=== PATIENT | female | born 1990 | race Caucasian/White ===

== ENCOUNTER 2019-06-09 14:19 | Emergency (ER) | payer OTHER ==
[~2019-06-09] VITALS: Ht 160 cm; Wt 74.8 kg
--- OUTSIDE RECORDS SUMMARY | 2019-06-09 14:21 | XMS REPORT | Clinical Summary ---
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 08/19/2018 ibuprofen (ADVIL,MOTRIN) Take 1 tablet 60 tablet 3 600 MG tablet (600 mg 8 total) by mouth every 6 (six) hours as needed (Cramping, Laceration or Incision Pain) for up to 30 days. 08/19/2018 FSD89-vvfx,carb,glu-FA-ds Take 1 tablet 30 each 13 s-dha 27 mg iron-1 mg -50 by mouth 8 mg-250 mg combo pack daily for 30 days. Active Problems Problem Noted Date 07/18/2018 Encounters Care Team Description Date Type Specialty Yari Cleary MD 07/18/2018 Anesthesia Obstetrics and Gynecology Event Kim Mascorro MD 39 weeks gestation of (Primary Dx) 07/18/2018 Hospital Obstetrics and Gynecology - Encounter 07/20/2018 Kim Mascorro MD DELIVERY, 07/18/2018 Surgery Obstetrics and Gynecology Kim Mascorro MD REPEAT + BILATERAL TUBAL LIGATION 07/16/2018 Surgery Obstetrics and Gynecology Kim Mascorro MD 07/16/2018 Hospital Obstetrics and Gynecology Encounter after 06/08/2018 Immunizations Name Dates Previously Given Next Due FLUCELVAX QUAD PF (0.5mL 07/19/2018 syringe) Tdap 07/19/2018 Family History Medical History Relation Name Comments Cancer Paternal Grandmother Relation Name Status Comments Paternal Grandmother Social History Date Tobacco Use Types Packs/Day Years Used Never Smoker Smokeless Tobacco: Never Used Alcohol Use Drinks/Week oz/Week Comments No Sex Assigned at Date Recorded Not on file Industry Job Start Date Occupation Not on file Not on file Not on file Travel End Travel History Travel Start No recent travel history available. Last Filed Vital Signs Time Taken Vital Sign Reading 07/20/2018 8:22 AM CDT Blood Pressure 112/62 07/20/2018 8:22 AM CDT Pulse 77 07/20/2018 8:22 AM CDT Temperature 36.7 C (98.1 F) 07/20/2018 8:22 AM CDT Respiratory Rate 18 07/18/2018 4:00 PM CDT Oxygen Saturation 98% - Inhaled Oxygen - Concentration 07/18/2018 6:41 AM CDT Weight 74.4 kg (164 lb) 07/18/2018 6:41 AM CDT Height 160 cm (5' 3") 07/18/2018 6:41 AM CDT Body Mass Index 29.05 Plan of Treatment Not on file Procedures Comments Procedure Name Priority Date/Time Associated Diagnosis HC COMPLETE BLD COUNT Routine 07/19/2018 W/AUTO DIFF 4:08 AM CDT SURGICAL PATHOLOGY Routine 07/18/2018 REQUEST 9:16 AM CDT CORD BLOOD GAS, VENOUS Routine 07/18/2018 9:00 AM CDT CORD BLOOD GAS, ARTERIAL Routine 07/18/2018 9:00 AM CDT ANESTHESIA SPINAL BLOCK Routine 07/18/2018 8:42 AM CDT Procedure Note - Yari Cleary MD - 07/18/2018 8:42 AM CDT Spinal Block Performed by: YARI CLEARY Authorized by: YARI CLEARY Patient Location: OB Start Time: 07/18/2018 8:35 AM End Time: 07/18/2018 8:42 AM Reason for Block: primary anesthetic Staff: Anesthesio logist: YARI CLEARY Performed by: Anesthesio logist patient identified , IV checked, site and side verified, risks and benefits discussed, procedure verified, surgical consent complete, patient position confirmed, monitors and equipment checked and pre-op evaluation complete TIme Out Performed: 07/18/2018 8:31 AM Spinal Block: Patient Position: Sitting Prep: Betadine Monitoring : Blood pressure monitoring , continuous pulse oximetry and heart rate Approach: Midline Interspace : L4-5 Injection Technique: Single injection Notes: Bupivacain e 14mg with Morphine 0.2mg in CSF. Lot [id number] 07/19 [id number] 04/15/2020 . HIV 1, 2 ANTIBODY Routine 07/18/2018 6:44 AM CDT TYPE AND SCREEN, Routine 07/18/2018 OBSTETRICAL PATIENT 6:44 AM CDT SYPHILIS TREPONEMAL IGG Routine 07/18/2018 6:44 AM CDT HEPATITIS B SURFACE Routine 07/18/2018 ANTIGEN 6:44 AM CDT HC COMPLETE BLD COUNT Routine 07/18/2018 W/AUTO DIFF 6:44 AM CDT URINE DRUGS OF ABUSE STAT 07/18/2018 SCREEN 6:30 AM CDT URINALYSIS SCREEN AND STAT 07/18/2018 MICROSCOPY, WITH REFLEX 6:30 AM CDT TO CULTURE GRAM STAIN STAT 07/18/2018 6:30 AM CDT URINE CULTURE STAT 07/18/2018 6:30 AM CDT DELIVERY, 07/18/2018 Prior Case Notes Scheduled + BILATERAL 07/16/2018 Onset (spontaneous) of TUBAL LIGATION 7:30 AM CDT labor after 37 completed weeks of gestation but before 39 completed weeks gestation, with delivery by (planned) section Encounter for initial prescription of contraceptives, unspecified contraceptive Special Needs [facility] 07-23-1830/2 WKS HIV 1, 2 ANTIBODY Routine 07/16/2018 6:57 AM CDT TYPE AND SCREEN, Routine 07/16/2018 OBSTETRICAL PATIENT 6:57 AM CDT SYPHILIS TREPONEMAL IGG Routine 07/16/2018 6:57 AM CDT HEPATITIS B SURFACE Routine 07/16/2018 ANTIGEN 6:57 AM CDT HC COMPLETE BLD COUNT Routine 07/16/2018 W/AUTO DIFF 6:57 AM CDT URINE DRUGS OF ABUSE STAT 07/16/2018 SCREEN 6:15 AM CDT URINALYSIS SCREEN AND STAT 07/16/2018 MICROSCOPY, WITH REFLEX 6:15 AM CDT TO CULTURE GRAM STAIN STAT 07/16/2018 6:15 AM CDT URINE CULTURE STAT 07/16/2018 6:15 AM CDT BETA STREP SCREEN CULTURE Routine 06/20/2018 WITH OLIVA BROTH after 06/08/2018 Results * CBC with platelet and differential (07/19/2018 4:08 AM CDT) Only the most recent of 3 results within the time period is included. WBC 7.9 4.2 - 11.0 k/uL [facility] DEPARTMENT OF PATHOLOGY AND GENOMIC MEDICINE RBC 2.82 (L) 4.04 - 5.86 m/uL [facility] DEPARTMENT OF PATHOLOGY AND GENOMIC MEDICINE HGB 8.5 (L) 11.5 - 15.3 g/dL [facility] DEPARTMENT OF PATHOLOGY AND GENOMIC MEDICINE HCT 25.7 (L) 34.0 - 45.0 % [facility] DEPARTMENT OF PATHOLOGY AND GENOMIC MEDICINE MCV 91.1 80.0 - 98.0 fL [facility] DEPARTMENT OF PATHOLOGY AND GENOMIC MEDICINE MCH 30.1 27.0 - 34.0 pg [facility] DEPARTMENT OF PATHOLOGY AND GENOMIC MEDICINE MCHC 33.1 31.5 - 36.5 g/dL [facility] DEPARTMENT OF PATHOLOGY AND GENOMIC MEDICINE RDW - SD 43.4 37.0 - 51.0 fL [facility] DEPARTMENT OF PATHOLOGY AND GENOMIC MEDICINE MPV 11.6 (H) 7.4 - 10.4 fL [facility] DEPARTMENT OF PATHOLOGY AND GENOMIC MEDICINE Platelet count 157 150 - 400 k/uL [facility] DEPARTMENT OF PATHOLOGY AND GENOMIC MEDICINE Nucleated RBC 0.00 /100 WBC [facility] DEPARTMENT OF PATHOLOGY AND GENOMIC MEDICINE Neutrophils 73.4 (H) 36.0 - 66.0 % [facility] DEPARTMENT OF PATHOLOGY AND GENOMIC MEDICINE Lymphocytes 18.3 (L) 24.0 - 44.0 % [facility] DEPARTMENT OF PATHOLOGY AND GENOMIC MEDICINE Monocytes 6.8 (H) 0.0 - 6.0 % [facility] DEPARTMENT OF PATHOLOGY AND GENOMIC MEDICINE Eosinophils 0.8 0.0 - 6.0 % [facility] DEPARTMENT OF PATHOLOGY AND GENOMIC MEDICINE Basophils 0.3 0.0 - 1.2 % [facility] DEPARTMENT OF PATHOLOGY AND GENOMIC MEDICINE Immature 0.4 0.0 - 1.0 % [facility] granulocytes OF PATHOLOGY AND GENOMIC MEDICINE Specimen Blood Performing Organization Address City/State/Zipcode Phone Number [address] [address] PATHOLOGY AND GENOMIC MEDICINE * Surgical pathology request (07/18/2018 9:16 AM CDT) [facility] DEPARTMENT OF PATHOLOGY AND GENOMIC MEDICINE Surgical See link below for PDF Lab [facility] pathology Report OF PATHOLOGY report AND GENOMIC MEDICINE Result status This is Final Report for [facility] [id number] OF PATHOLOGY AND GENOMIC MEDICINE Specimen Performing Organization Address City/[facility] Phone Number [address] [address] PATHOLOGY AND GENOMIC MEDICINE * Cord blood gas, arterial (07/18/2018 9:00 AM CDT) Nurse Practitioner Physicians Assistant WALTER [facility] DEPARTMENT OF PATHOLOGY AND GENOMIC MEDICINE Collection site CORD BLOOD [facility] DEPARTMENT OF PATHOLOGY AND GENOMIC MEDICINE pH, cord 7.32 7.13 - 7.43 [facility] DE[facility] arterial Comment: OF PATHOLOGY CORD BLOOD GAS SPECIMEN AND GENOMIC Unique reference ranges apply MEDICINE to pH, PO2, PCO2 and Base deficit. pCO2, cord 48 30 - 60 mmHg [facility] DE[facility] arterial OF PATHOLOGY AND GENOMIC MEDICINE pO2, cord 20 mmHg [facility] DE[facility] arterial OF PATHOLOGY AND GENOMIC MEDICINE O2 saturation, 39 (LL)Comment: CORD BLOOD % [facility] DEPARTMENT cord arterial OF PATHOLOGY AND GENOMIC MEDICINE Base excess, -1 mEq/L [facility] DEPART[facility] arterial, cord OF PATHOLOGY AND GENOMIC MEDICINE Bicarbonate, 24.9 21.0 - 28.0 mmol/L [facility] arterial, cord OF PATHOLOGY AND GENOMIC MEDICINE O2 content 8.1 VOL% [facility] DE[facility]MENT OF PATHOLOGY AND GENOMIC MEDICINE Carboxyhemoglob 1.9 (H) 0.0 - 1.4 % [facility] DEPART[facility] in Comment: OF PATHOLOGY Reference Ranges: AND [facility] Carboxyhemoglobin MEDICINE Non smoker: 0.0 - 2.0% Smoker: 2.1 - 5.0% Heavy smoker: 5.1 - 9% Methemoglobin 1.2 (H) 0.0 - 1.0 % [facility] DEPARTMENT OF PATHOLOGY AND GENOMIC MEDICINE Hemoglobin, 15.1 12.0 - 16.0 g/dL [facility] DE[facility] blood gas OF PATHOLOGY AND GENOMIC MEDICINE pO2, A-a 75.1 mmHg [facility] DE[facility]MENT OF PATHOLOGY AND GENOMIC MEDICINE Specimen Blood Performing Organization Address City/State/[facility] Phone Number [facility] [address] [place] [address] PATHOLOGY AND GENOMIC MEDICINE * Cord blood gas, venous (07/18/2018 9:00 AM CDT) Pathologist [facility] pH, cord venous 7.36 7.19 - 7.49 mL [facility] DE[facility] OF PATHOLOGY AND GENOMIC MEDICINE pCO2, cord 43 27 - 43 mmHg [facility] venous OF PATHOLOGY AND GENOMIC MEDICINE pO2, cord 23 15 - 45 mmHg [facility] venous OF PATHOLOGY AND GENOMIC MEDICINE O2 saturation, 50 % [facility] cord venous OF PATHOLOGY AND GENOMIC MEDICINE Base excess, -1 (L) 1 - 9 mEq/L [facility] venous, cord OF PATHOLOGY AND GENOMIC MEDICINE Bicarbonate, 24.3 21.0 - 28.0 mmol/L [facility] venous, cord OF PATHOLOGY AND GENOMIC MEDICINE Specimen Performing Organization Address City/[facility] Phone Number [facility] [address] [place] [address] PATHOLOGY AND GENOMIC MEDICINE * Syphilis treponemal IgG (07/18/2018 6:44 AM CDT) Only the most recent of 2 results within the time period is included. Pathologist [facility] Syphilis Non-reactiveComment: Non-reactive [facility] DEPARTMENT treponemal IgG Non-reactive: No serological OF PATHOLOGY evidence of Syphilis infection AND GENOMIC MEDICINE Specimen Serum Performing Organization Address City/State/Zipcode Phone Number [facility] [address] [place] [address] PATHOLOGY AND GENOMIC MEDICINE * Type and screen, obstetrical patient (07/18/2018 6:44 AM CDT) Only the most recent of 2 results within the time period is included. Pathologist [facility] ABO grouping O [facility] DE[facility]MENT OF PATHOLOGY AND GENOMIC MEDICINE Rh type POS [facility] OF PATHOLOGY AND GENOMIC MEDICINE Antibody screen NEG [facility] DE[facility] (gel) OF PATHOLOGY AND GENOMIC MEDICINE Specimen Blood Performing Organization Address City/[facility]/Zipcode Phone Number [facility] [address]ichardo[facility] [facility]. [place] [phone] PATHOLOGY AND GENOMIC MEDICINE * HIV 1, 2 antibody (07/18/2018 6:44 AM CDT) Only the most recent of 2 results within the time period is included. [facility] HIV 1, 2 Non-Reactive Non-reactive [facility] DE[facility] antibody Comment: OF PATHOLOGY Starting from February 11 2016, AND GENOMIC 4th generation HIV screening MEDICINE and confirmation assays are in use at [facility], consistent with the CDC-recommended algorithm. The screening test detects antibodies to HIV-1, HIV-2 and the p24 antigen. Positive screening results will be automatically reflexed to a HIV-1/HIV-2 differentiation assay. Indeterminant HIV-1 results will be further automatically reflexed to a nucleic acid test for detection of acute infection. Western blot will no longer be performed as a confirmation test. For a quick reference guide on the testing algorithm, please refer to: http://stacks.cdc.gov/view/cdc /11820. Specimen Blood Performing Organization Address City/[facility]/Zipcode Phone Number [place] [phone] [place] [address] PATHOLOGY AND [facility] * Hepatitis B surface antigen (07/18/2018 6:44 AM CDT) Only the most recent of 2 results within the time period is included. [facility] Hepatitis B Non-reactive Non-reactive [facility] surface Ag OF PATHOLOGY AND GENOMIC [facility] Specimen Blood Performing Organization Address City/[facility]/Zipcode Phone Number [place] [address] [facility]. [place] [phone] PATHOLOGY AND GENOMIC MEDICINE * Urinalysis screen and microscopy, with reflex to culture (07/18/2018 6:30 AM CDT) Only the most recent of 2 results within the time period is included. [facility] Specimen site Clean catch [facility] DE[facility] OF PATHOLOGY AND GENOMIC MEDICINE Color, UA Yellow [facility] DE[facility] OF PATHOLOGY AND GENOMIC MEDICINE Appearance, UA Slightly-Cloudy [facility] OF PATHOLOGY AND GENOMIC MEDICINE Specific 1.011 1.001 - 1.035 [facility] gravity, UA OF PATHOLOGY AND GENOMIC MEDICINE pH, UA 6.0 5.0 - 8.5 [facility] OF PATHOLOGY AND GENOMIC MEDICINE Protein, UA Negative Negative [facility] OF PATHOLOGY AND GENOMIC MEDICINE Glucose, UA Negative Negative [facility] OF PATHOLOGY AND GENOMIC MEDICINE Ketones, UA Negative Negative [facility] OF PATHOLOGY AND GENOMIC MEDICINE Bilirubin, UA Negative Negative [facility] OF PATHOLOGY AND GENOMIC MEDICINE Blood, UA Negative Negative [facility] OF PATHOLOGY AND GENOMIC MEDICINE Nitrite, UA Negative Negative [facility] OF PATHOLOGY AND GENOMIC MEDICINE Urobilinogen, Negative <2.0 [facility] UA OF PATHOLOGY AND GENOMIC MEDICINE Leukocyte Moderate (A) Negative [facility] esterase, UA OF PATHOLOGY AND GENOMIC MEDICINE Epithelial Many /HPF [facility] cells, UA OF PATHOLOGY AND GENOMIC MEDICINE WBC, UA 19 (H) 0 - 5 /HPF [facility] OF PATHOLOGY AND GENOMIC MEDICINE RBC, UA 6 (H) 0 - 5 /HPF [facility] OF PATHOLOGY AND GENOMIC MEDICINE Bacteria, UA Trace None seen [facility] OF PATHOLOGY AND GENOMIC MEDICINE WBC clumps, UA Few (A) [facility] OF PATHOLOGY AND GENOMIC MEDICINE Yeast, UA None seen [facility] OF PATHOLOGY AND GENOMIC MEDICINE Yeast with None seen [facility] DE[facility] pseudohyphae, OF PATHOLOGY UA AND GENOMIC MEDICINE Specimen Urine Performing Organization Address City/State/Zipcode Phone Number [facility] [address] [place] [address] PATHOLOGY AND [facility] MEDICINE * Urine drugs of abuse screen (07/18/2018 6:30 AM CDT) Only the most recent of 2 results within the time period is included. Amphetamine Negative [facility] screen, urine OF PATHOLOGY AND GENOMIC MEDICINE Barbiturate Negative [facility] screen, urine OF PATHOLOGY AND GENOMIC MEDICINE Benzodiazepine Negative [facility] screen, urine OF PATHOLOGY AND GENOMIC MEDICINE Cocaine screen, Negative [facility] urine OF PATHOLOGY AND GENOMIC MEDICINE Methadone Negative [facility] screen, urine OF PATHOLOGY AND GENOMIC MEDICINE Opiates screen, Negative [facility] urine OF PATHOLOGY AND GENOMIC MEDICINE Phencyclidine Negative [facility] screen, urine OF PATHOLOGY AND GENOMIC MEDICINE Cannabinoid Negative [facility] screen, urine Comment: OF PATHOLOGY Drug screen minimum AND GENOMIC concentration of detectability MEDICINE Amphetamines 1000 ng/mL Methamphetamines 1000 ng/mL Barbiturates 300 ng/mL Benzodiazepines 300 ng/mL Cocaine 300 ng/mL Methadone 300 ng/mL Opiates 300 ng/mL Phencyclidine 25 ng/mL Cannabinoids 50 ng/mL Tricyclics 1000 ng/mL Negative test results indicates presumptive evidence of lack of clinically significant drug concentration in this urine specimen. Positive test results are presumptive evidence of clinically significant drug concentration in this urine specimen. Testing performed for medical purposes only. Specimen Urine Performing Organization Address City/State/Zipcode Phone Number [facility] DEPARTMENT OF [address] [place] [address] PATHOLOGY AND GENOMIC MEDICINE * Gram stain (07/18/2018 6:30 AM CDT) Only the most recent of 2 results within the time period is included. Gram stain No WBC's [facility] DEPARTMENT result Moderate Gram positive rods OF PATHOLOGY Comment: AND GENOMIC Specimen Information MEDICINE Specimen Source: Urine Specimen Site: Clean catch Specimen Urine Performing Organization Address City/[facility]/Zipcode Phone Number [facility] DEPARTMENT OF [address] [place] [address] PATHOLOGY AND GENOMIC MEDICINE * Urine culture (07/18/2018 6:30 AM CDT) Only the most recent of 2 results within the time period is included. Urine culture Streptococcus group B [facility] DEPARTMENT isolate 10-2 cfu/ml OF PATHOLOGY (A) AND GENOMIC Comment: MEDICINE Specimen Information Specimen Source: Urine Specimen Site: Clean catch Urine culture Mixed Gram positive judith [facility] DEPARTMENT isolate 10-2 cfu/ml OF PATHOLOGY (A) AND GENOMIC MEDICINE Specimen Urine Performing Organization Address [facility] Phone Number [facility] DEPARTMENT OF [address] [place] [address] PATHOLOGY AND GENOMIC MEDICINE * Beta strep screen culture with oliva broth (06/20/2018) Strep gp B positive EXTERNAL LAB culture NON-INTERFACED Specimen Vaginal Performing Organization Address City/[facility] Phone Number EXTERNAL LAB NON-INTERFACED after 06/08/2018 Insurance Type Payer Benefit Subscriber ID Effective Phone Address Plan / Dates Group [employer] [facility] xxxxxxxxx 2017-P PATRICIA/ROBIN ECHOLS Advance Directives Patient has advance care planning documents, and code status on file. For more i nformation, please contact: Saturnino Armenta [address] [place] [address] Date Inactivated Comments Code Status Date Activated 07/20/2018 3:45 PM Full Code 07/18/2018 10:34 AM Code Status decision reached by: Patient 05/12/2018 11:54 PM Full Code 05/12/2018 5:18 PM Code Status decision reached by: Patient
--- OUTSIDE RECORDS SUMMARY | 2019-06-09 14:21 | XMS REPORT ---
Author Author Admin, [place] Organization [facility] Address [address] [address] Phone Allergies, Adverse Reactions, Alerts Allergy Name Reaction Description Start Date Severity Status Provider No Known Allergies Rula Peterson MA Conditions or Problems Problem Name Problem Code Onset Date Status Entry Date Provider Comment Standard Description Annotate BRONCHITIS, ACUTE 466.0 Active Carie Ochoa MD Acute bronchitis BMI 28.0-28.9 Active Raheem Edward MD Body Mass Index 28.0-28.9, adult Conjunctivitis, acute, right ICD-372.00 Inactive Carie Ochoa MD Pharyngitis, acute ICD-462 Inactive Carie Ochoa MD Viral URI ICD-465.9 Inactive Carie Ochoa MD Conjunctivitis, acute, right 372.00 Resolved Carie Ochoa MD Acute conjunctivitis, unspecified Pharyngitis, acute 462 Resolved Carie Ochoa MD Acute pharyngitis Viral URI 465.9 Resolved Carie Ochoa MD Acute upper respiratory infections of unspecified site Medication List Medication Instructions Start Date Stop Date Generic Name NDC Status Provider Patient Instruction AZITHROMYCIN 250 MG ORAL TABLET 2 tablets by mouth on day one then one tablet by mouth each day for a total of 5 days AZITHROMYCIN 67316753884 Active Carie Ochoa MD Active SM TUSSIN COUGH/CHEST CONGEST 100-10 MG/5ML ORAL SYRUP 10 ml every 6-8 hrs as needed for cough DEXTROMETHORPHAN-GUAIFENESIN 77427043006 Active Carie Ochoa MD Active TESSALON PERLES 100 MG ORAL CAPSULE 1 by mouth 3 times a day as needed for cough BENZONATATE 29094163143 Active Carie Ochoa MD Active SULFACETAMIDE SODIUM 10 % OPHTHALMIC SOLUTION 2 drops in eye[s] Every 4-6 hrs SULFACETAMIDE SODIUM 10 % OPHTHALMIC SOLUTION [id number] SULFACETAMIDE SODIUM Inactive SULFACETAMIDE SODIUM 10 % OPHTHALMIC SOLUTION 2 drops in eye[s] Every 4-6 hrs SULFACETAMIDE SODIUM [id number] No Longer Active Raheem Edward MD Active Vital Signs Date Name Value Unit Range Description blood pressure, diastolic 76 mm[Hg] BP [place] blood pressure, systolic 125 mm[Hg] BP sys height E&M 63 [in_us] Bdy height pulse rate E&M 81 /min Heart rate respiratory rate E&M 14 /min Resp rate temperature E&M 98.3 [degF] Body temperature weight E&M 166.40 [lb_av] Weight Measured blood pressure, diastolic 69 mm[Hg] BP [place] blood pressure, systolic 116 mm[Hg] BP sys height E&M 63 [in_us] Bdy height pulse rate E&M 122 /min Heart rate respiratory rate E&M 18 /min Resp rate temperature E&M 99.7 [degF] Body temperature weight E&M 162 [lb_av] Weight Measured Diagnostic Results Date Name Value Unit Range Description Office Visit: Acute Visit - Lab Microbial identification kit, rapid strep method negative Encounters Date Encounter Provider Code Facility 12:15:21 CDT Ofc Vst, Est Level III Carie Ochoa MD CPT-73085 [facility] 13:27:26 CDT New Patient Exp Problem - 80686 Raheem Edward MD CPT-37164 [facility] Procedures Code Procedure Name Date Entry Date Standard Description CPT-01467 Rapid Strep - In House 13:27:25 CDT
[2019-06-09] MEDS ORDERED: TETANUS/DIPHTHERIA TOX ADULT 0.5 ML SYR IM ONE (15:15)
[2019-06-09] MEDS ORDERED: HYDROCODONE/APAP 10MG-325MG TAB PO ONE (15:30)
[2019-06-09] MEDS ORDERED: LIDOCAINE/PRILOCAINE 2.5-2.5% KIT TOP ONE (15:30)
[2019-06-09] MEDS: BACITRACIN ZINC 15 GM OINT TOP SCH (16:35)
== END 2019-06-09 16:59 | disposition home or self-care (01) ==
LOC: ER 14:19
DX: T56.1X1A Toxic effect of mercury and its compounds, accidental (unintentional), initial encounter (principal); T23.641A Corrosion of second degree of multiple right fingers (nail), including thumb, initial encounter; T23.651A Corrosion of second degree of right palm, initial encounter; Z23 Encounter for immunization
CPT/HCPCS: 90471; 90714; 99284